=== PATIENT | male | born 1980 ===

== ENCOUNTER 2019-03-02 16:14 | Inpatient (IN) | payer OTHER ==
--- NOTE | 2019-03-02 16:36 | ED ---
Chest Pain HPI - General Chief Complaint: Chest Pain Stated Complaint: coughing, chest pain, abimbola, hypertension Time Seen by Provider: 03/02/19 16:23 Source: patient Mode of arrival: ambulatory Limitations: no limitations - History of Present Illness Initial Comments: 38-year-old male patient presents to the emergency department today for evaluation of chest pain. Patient states he has been having chest pain for the last week. Patient states that last night seemed to worsen and he had elevated blood pressure and heart rate. Patient states he does have history of coronary artery disease with history of three-vessel bypass and 17 stents. Patient states he is currently taking Imdur, Plavix, and nitro as needed. Patient states he has been having increased swelling to his bilateral ankles. Patient states his been very short of breath and unable to walk up stairs or doing any prolonged physical activity. States he was nauseated and vomiting last evening. States he did have a temperature 102F. He states he does have a dry cough. Denies any nasal congestion or sore throat. Patient denies any recent rash, abdominal pain, diarrhea, constipation, back pain, numbness, tingling, dizziness, weakness, hematuria, dysuria, urinary urgency, urinary frequency, headache, visual changes, or any other complaints. Patient has been at [facility] for 2.5 weeks for alcohol addiction. - Related Data Home Medications Medication Instructions Recorded Confirmed Acetaminophen [Tylenol] 650 mg PO Q4H PRN 03/02/19 03/02/19 Citalopram Hydrobromide [CeleXA] 40 mg PO DAILY 03/02/19 03/02/19 Gabapentin [Neurontin] 800 mg PO TID 03/02/19 03/02/19 Ibuprofen [Motrin] 600 mg PO Q6HR PRN 03/02/19 03/02/19 Insulin Aspart [Novolog Flexpen] See Protocol SQ TID 03/02/19 03/02/19 Insulin Glargine,Hum.rec.anlog 90 unit SQ HS 03/02/19 03/02/19 [Basaglar Kwikpen U-100] Metoprolol Succinate (ER) [Toprol 100 mg PO DAILY 03/02/19 03/02/19 Xl] Mirtazapine [Remeron] 15 mg PO HS 03/02/19 03/02/19 Multivitamins, Thera [Multivitamin 1 tab PO DAILY 03/02/19 03/02/19 (formulary)] Pantoprazole Sodium [Protonix] 40 mg PO BID 03/02/19 03/02/19 Thiamine HCl [Vitamin B-1] 100 mg PO DAILY 03/02/19 03/02/19 busPIRone HCl [Buspar] 10 mg PO TID PRN 03/02/19 03/02/19 Allergies Allergy/AdvReac Type Severity Reaction Status Date / Time acetaminophen Allergy Rash/Hives Verified 03/02/19 16:31 Iodinated Contrast- Oral and Allergy Rash/Hives Verified 03/02/19 16:31 IV Dye ketorolac [From Toradol] Allergy Rash/Hives Verified 03/02/19 16:31 shellfish derived [Shellfish] Allergy Rash/Hives Verified 03/02/19 16:31 tramadol Allergy Rash/Hives Verified 03/02/19 16:31 Review of Systems ROS Statement: Those systems with pertinent positive or pertinent negative responses have been documented in the HPI. ROS Other: All systems not noted in ROS Statement are negative. EKG Findings - EKG Comments: EKG Findings:: EKG obtained at 1648 shows normal sinus rhythm with a ventricular rate of 72, P return of a 152, QRS duration 90, QT 414, QTC 453. No evidence of ST elevation or depression. Past Medical History Past Medical History: Atrial Fibrillation, Coronary Artery Disease (CAD), Diabetes Mellitus, Hyperlipidemia, Hypertension, Myocardial Infarction (ID) Additional Past Medical History / Comment(s): CAD, anemic History of Any Multi-Drug Resistant Organisms: None Reported Past Surgical History: Cholecystectomy, Coronary Bypass/CABG, Heart Catheterization With Stent Additional Past Surgical History / Comment(s): 17 stents, neck c2 repair, clavical repair Past Psychological History: Anxiety, Depression Smoking Status: Former smoker Past Alcohol Use History: Abuse, Heavy Past Drug Use History: None Reported General Exam Limitations: no limitations General appearance: alert, in no apparent distress, other (This is a well- developed, well-nourished adult male patient in no acute distress. Vital signs upon presentation are temperature 98.3F, pulse 75, respirations 18, blood pressure 112/63, pulse ox 99% on room air.) Eye exam: Present: normal appearance, PERRL, EOMI. Absent: scleral icterus, conjunctival injection, periorbital swelling ENT exam: Present: normal exam, normal oropharynx, mucous membranes moist Respiratory exam: Present: normal lung sounds bilaterally. Absent: respiratory distress, wheezes, rales, rhonchi, stridor Cardiovascular Exam: Present: regular rate, normal rhythm, normal heart sounds. Absent: systolic murmur, diastolic murmur, rubs, gallop, clicks GI/Abdominal exam: Present: soft, normal bowel sounds. Absent: distended, tenderness, guarding, rebound, rigid Neurological exam: Present: alert, oriented X3, CN II-XII intact Psychiatric exam: Present: normal affect, normal mood Skin exam: Present: warm, dry, intact, normal color. Absent: rash Course Vital Signs 03/02/19 16:18 Temperature 98.3 F Pulse Rate 75 Respiratory 18 Rate Blood Pressure 112/63 O2 Sat by Pulse 99 Oximetry Chest Pain MDM - [facility] 38-year-old male patient with past medical history significant for coronary artery disease with triple vessel CABG and 17 stents, presented to the emergency department today for evaluation of chest pain, shortness of breath, and nausea. Physical examination is unremarkable. Lungs are clear to auscultation with good air movement. Chest pain is nonreproducible with palpation. Labs reviewed and are unremarkable. Troponin negative. Chest x-ray shows no acute cardio pulmonary process. EKG is normal sinus rhythm. Given patient's history was admitted for observation and evaluation by cardiology. He is currently taking Plavix. We will repeat troponins. We will allow admitted to manage pain medication. Disposition Clinical Impression: Chest pain Disposition: ADMITTED IP TO THIS [facility] Condition: Serious Referrals: Arturo Kaplan MD [Primary Care Provider] - 1-2 days Decision to Admit Reason: Admit from [facility] Decision Date: 03/02/19 Decision Time: 19:35
[2019-03-02 18:13] LABS: Anisocytosis Slight; Basophils % (A) 0 %; Eosinophils # (A) 0.1 k/uL (0-0.7); Eosinophils % (A) 1 %; HCT 26.2 % (39.0-53.0); Hypochromasia Marked; Lymphocytes % (A) 11 %; MCH 22.4 pg (25.0-35.0); MCHC 30.4 g/dL (31.0-37.0); MCV 73.5 fL (80.0-100.0); Mean Platelet Volume 10.3; Microcytosis Moderate; Monocytes # (A) 0.7 k/uL (0-1.0); Monocytes % (A) 8 %; Neutrophils # (A) 7.3 k/uL (1.3-7.7); Neutrophils % (A) 78 %; Platelet Count 128 k/uL (150-450); Poikilocytosis Slight; RBC 3.56 m/uL (4.30-5.90); RDW 17.6 % (11.5-15.5); WBC 9.4 k/uL (3.8-10.6)
[2019-03-02 18:16] LABS: ALT 35 U/L (21-72); AST 24 U/L (17-59); Alkaline Phosphatase 104 U/L (38-126); Amylase 61 U/L (30-110); Blood Urea Nitrogen 23 mg/dL (9-20); Calcium 8.2 mg/dL (8.4-10.2); Carbon Dioxide 25 mmol/L (22-30); Glucose 313 mg/dL (74-99); Lipase 275 U/L (23-300); Magnesium 1.8 mg/dL (1.6-2.3); Potassium 4.5 mmol/L (3.5-5.1); Sodium 135 mmol/L (137-145); Total Bilirubin 0.3 mg/dL (0.2-1.3); Total Protein 5.7 g/dL (6.3-8.2)
[2019-03-02 18:20] LABS: Prothrombin Time 10.5 sec (9.0-12.0)
--- NOTE | 2019-03-02 18:29 | XR ---
EXAMINATION TYPE: XR chest 2V DATE OF EXAM: 03/02/2019 COMPARISON: NONE HISTORY: Chest pain TECHNIQUE: Frontal and lateral views of the chest are obtained. FINDINGS: Heart and mediastinum are normal. Lungs are clear of infiltrate. There is chest leads. The re is no pleural effusion. There is late fixing old right clavicle fracture. Thoracic spine is intact . There are old right-sided healed rib fractures. IMPRESSION: No active cardiopulmonary disease.
[2019-03-02 18:30] LABS: Albumin 3.1 g/dL (3.5-5.0); Anion Gap 6 mmol/L; Chloride 104 mmol/L (98-107)
[2019-03-02] MEDS ORDERED: MORPHINE SULFATE 4 MG/ML SYRINGE IVP STA (19:23)
[2019-03-02] MEDS ORDERED: diphenhydrAMINE 25 MG CAP PO STA (19:23)
[2019-03-02] MEDS ORDERED: NITROGLYCERIN SL TABS 0.4 MG TAB SUBLINGUAL PRN (19:40)
[2019-03-02] MEDS ORDERED: busPIRone HCl 10 MG TAB PO PRN (20:36)
[2019-03-02 21:16] LABS: Glucose,Whole Blood 201 mg/dL (75-99)
--- NOTE | 2019-03-02 22:47 | HP ---
HISTORY AND PHYSICAL CHIEF COMPLAINT: Chest pain. HISTORY OF PRESENT ILLNESS: This is the first known admission for this 38-year-old gentleman who has had severe cardiac issues in the past. He started to have shaking chills and found his temperature to be 102. Checked his blood pressure and it was 240/160 with a pulse of 136 and he came to the emergency room. His past history is significant and he has had a CABG and 17 stents. These are all been done elsewhere. He has history of hypertension, type 1 insulin-dependent diabetes mellitus, depression and hyperlipidemia. REVIEW OF SYSTEMS: He has had no syncope, nuchal rigidity, cough, sputum production, dysuria, frequency, urgency, abdominal pain, nausea, vomiting, diarrhea, melena, hematochezia, etc. Past medical history, family history personal and social histories reveal he is ALLERGIC TO CONTRAST MATERIAL, SHELLFISH, TRAMADOL, NSAIDS, AND ACETAMINOPHEN. According to his MAR, he is taking Tylenol, (! ! !). He also takes BuSpar, Celexa, gabapentin, ibuprofen, ibuprofen, Basaglar and NovoLog, metoprolol, mirtazapine, Protonix, and thiamin. Laboratory studies reveal hemoglobin of 8, blood sugar 313, calcium low at 8.2, and low protein. PHYSICAL EXAM: Blood pressure 112/63 with a pulse 75, respirations of 18. He is afebrile. GENERAL: He appeared to be well developed, well nourished, in no acute distress. Skin color is normal. Skin is warm, dry. Lymph nodes not enlarged. Head, ears, eyes, nose, mouth, and throat are unremarkable except he has some small magnets pasted on each ear. Carotids are normal. Neck veins not distended. Chest is clear and the cardiac exam demonstrated a grade 2/6 systolic murmur heard throughout the precordium. The abdomen was soft and nontender and extremities were normal. Neurological he is intact. He is admitted to the hospital with diagnoses: IMPRESSION: 1. Chest pain. 2. Extensive history of coronary artery disease with coronary artery bypass grafting and 17 stents. 3. Type 1 insulin dependent diabetes mellitus. 4. History of hypertension. 5. History of depression. 6. Hyperlipidemia. 7. Fever of unknown origin. PLAN: 1. Bed rest. 2. IV fluids. 3. Serial EKGs and enzymes. 4. Watch for elevated temperature, blood pressure, which are not documented since he has come to the hospital. 5. Cardiology consult. MMODL / IJN: [id number] /
[2019-03-02] MEDS: PANTOPRAZOLE 40 MG TABLET PO SCH (23:24)
[2019-03-02] MEDS: MIRTAZAPINE 15 MG TAB PO SCH (23:24)
[2019-03-02] MEDS: INSULIN DETEMIR (LEVEMIR) 100 UNIT/ML SYR SQ SCH (23:24)
[2019-03-02] MEDS: INSULIN ASPART (NovoLOG) 100 UNIT/ML VIAL SQ SCH (23:37)
[2019-03-02] MEDS: GABAPENTIN 400 MG CAP PO SCH (23:59)
[2019-03-03] MEDS ORDERED: IBUPROFEN 600 MG TAB PO STA (04:06)
[2019-03-03 06:40] LABS: Glucose,Whole Blood 71 mg/dL (75-99)
[2019-03-03 06:43] LABS: Cholesterol 95 mg/dL (<200); HDL Cholesterol 33 mg/dL (40-60); LDL Cholesterol,Calculated 50 mg/dL (0-99); Triglycerides 60 mg/dL (<150)
[2019-03-03 07:02] LABS: Glucose,Whole Blood 107 mg/dL (75-99)
[2019-03-03] MEDS: INSULIN ASPART (NovoLOG) 100 UNIT/ML VIAL SQ SCH ×3 (08:58→17:18)
[2019-03-03] MEDS: GABAPENTIN 400 MG CAP PO SCH ×3 (09:09→21:11)
[2019-03-03] MEDS: THIAMINE 100 MG TAB PO SCH (09:09)
[2019-03-03] MEDS: ASPIRIN 325 MG TAB PO SCH (09:09)
[2019-03-03] MEDS: CITALOPRAM HYDROBROMIDE 20 MG TAB PO SCH (09:09)
[2019-03-03] MEDS: PANTOPRAZOLE 40 MG TABLET PO SCH ×2 (09:09→17:18)
[2019-03-03] MEDS: METOPROLOL SUCCINATE (ER) 100 MG TAB.ER.24H PO SCH (09:15)
--- NOTE | 2019-03-03 09:24 | CONS ---
CONSULTATION CHIEF COMPLAINT: Chest pain. Mr. Guillen is a 38-year-old gentleman with a history of coronary artery disease, status post CABG many years ago, status post multiple prior angioplasties per history, who lives and follows with a [facility] developer in [place]. He was near [place] due to alcohol-related issues and he was in [facility]. He comes in complaining of chest pain. Initially I believe when he first came to the hospital his heart rate was elevated, blood pressure was up, and he had shaking chills and apparently a temperature, but his predominant symptom is chest pain. He describes it as a chest pressure that radiates around his back, mild intensity, unassociated with diaphoresis and unrelated to exertion. He has had on and off episodes of this pain. Nitro does not seem to make any difference. At the time of my evaluation he is pain-free, hemodynamically stable. His EKG is within normal limits. He had 2 sets of cardiac enzymes that were all within normal limits. His lipid profile shows an LDL cholesterol of 50. PAST MEDICAL HISTORY: Significant for coronary artery disease, status post CABG, status post prior multiple angioplasties, diabetes and hypertension. CURRENT MEDICATIONS: Include: 1. Motrin. 2. Tylenol. 3. BuSpar. 4. Insulin. 5. Neurontin. 6. Protonix. 7. Thiamine. 8. Multivitamins. 9. Citalopram. ALLERGIES: He has MULTIPLE DRUG ALLERGIES, includin. TYLENOL. 2. IV DYE. 3. SHELLFISH. 4. TRAMADOL. FAMILY HISTORY: Negative for premature coronary artery disease. SOCIAL HISTORY: Significant for ETOH abuse and smoking. REVIEW OF SYSTEMS: HEENT is unremarkable. CARDIAC: As described above. RESPIRATORY: Negative. GI: Negative. GENITOURINARY: Negative. ALLERGY/IMMUNOLOGY: Negative. SKIN: Negative. MUSCULOSKELETAL: Negative. ENDOCRINE/DERMATOLOGICAL: Negative. CONSTITUTIONAL: Negative. ONCOLOGICAL: Negative. Rest of the system review is not relevant. PHYSICAL EXAMINATION: Comfortable at rest. He started off with a temperature of 103. This morning the temperature is 101. Blood pressure is normal. Heart rate is normal. There is no jugular venous distention. Carotid upstroke is normal. There is no bruit. Chest exam reveals good air entry bilaterally. Heart exam reveals first and second heart sounds. No gallop. No murmur. No rub. Abdomen is soft, nontender. Examination of extremities did not reveal any edema. Peripheral pulses are felt. CAR DISTRIBUTOR exam did not reveal focal neurological deficits. ASSESSMENT: 1. Precordial chest pain. 2. Insulin-requiring diabetes. 3. Febrile illness. PLAN: Patient's chest discomfort is atypical. It actually started with fever, shaking, and what appears like a febrile illness. From cardiac standpoint, EKG looks good. Cardiac enzymes are negative. I am going to feed him this morning, obtain a 2D echo to evaluate his LV function, review his outpatient records and decide on further course of action. His fever and other issues will be addressed by the primary care physician. Thank you for allowing me to participate in the care of this pleasant gentleman. ANANT / NUNO: [id number] /
--- NOTE | 2019-03-03 11:28 | ECHOF ---
Referral Reason:chest pain MEASUREMENTS -------- HEIGHT: 162.6 cm WEIGHT: 90.7 kg BP: RVIDd: 3.1 cm (< 3.3) IVSd: 1.2 cm (0.6 - 1.1) LVIDd: 4.2 cm (3.9 - 5.3) LVPWd: 1.6 cm (0.6 - 1.1) IVSs: 1.5 cm LVIDs: 3.3 cm LVPWs: 1.5 cm Ao Diam: 3.9 cm (2.0 - 3.7) AV Cusp: 2.0 cm (1.5 - 2.6) LA Diam: 3.8 cm (2.7 - 3.8) MV EXCURSION: 19.783 mm (> 18.000) MV EF SLOPE: 65 mm/s (70 - 150) EPSS: 0.6 cm MV E Alexy: 1.06 m/s MV DecT: 186 ms MV A Alexy: 0.94 m/s MV E/A Ratio: 1.12 RAP: 5.00 mmHg RVSP: 45.35 mmHg FINDINGS -------- Sinus rhythm. This was a technically adequate study. The left ventricular size is normal. There is mild concentric left ventricular hypertrophy. Overa ll left ventricular systolic function is normal with, an EF between 55 - 60 %. The right ventricle is normal in size. The left atrial size is normal. The right atrial size is normal. The aortic valve is trileaflet, and appears structurally normal. No aortic stenosis or regurgitation. Mild mitral annular calcification present. Mild mitral regurgitation is present. Mild tricuspid regurgitation present. There is mild pulmonary hypertension. The right ventricular systolic pressure, as measured by Doppler, is 45.35mmHg. The pulmonic valve was not well visualized. The aortic root size is normal. There is no pericardial effusion. CONCLUSIONS -------- 1. The left ventricular size is normal. 2. There is mild concentric left ventricular hypertrophy. 3. Overall left ventricular systolic function is normal with, an EF between 55 - 60 %. 4. The right ventricle is normal in size. 5. The left atrial size is normal. 6. The right atrial size is normal. 7. The aortic valve is trileaflet, and appears structurally normal. No aortic stenosis or regurgitati on. 8. Mild mitral annular calcification present. 9. Mild mitral regurgitation is present. 10. Mild tricuspid regurgitation present. 11. There is mild pulmonary hypertension. 12. The right ventricular systolic pressure, as measured by Doppler, is 45.35mmHg. 13. The pulmonic valve was not well visualized. 14. The aortic root size is normal. 15. There is no pericardial effusion. ASSISTANT [employer]O CENTER MANAGER: Sarika Jorge RDCS
[2019-03-03 11:57] LABS: Glucose,Whole Blood 138 mg/dL (75-99)
[2019-03-03] MEDS: OSELTAMIVIR 75 MG CAP PO SCH ×2 (13:18→21:11)
[2019-03-03 16:47] LABS: Glucose,Whole Blood 267 mg/dL (75-99)
[2019-03-03] MEDS: SODIUM CHLORIDE 0.9% 1,000 ML IV SCH (17:15)
--- NOTE | 2019-03-03 17:27 | PN ---
PROGRESS NOTE CHIEF COMPLAINT: Chest pain, chills and fever. HISTORY OF PRESENT ILLNESS: This gentleman is doing fairly well. He is being seen by Cardiology. He has been found to have influenza and he is being treated. PHYSICAL EXAM: Murmur is the same. Chest is clear. IMPRESSION: 1. Chest pain. 2. Extensive history of coronary artery disease with coronary artery bypass graft and numerous stents. 3. Influenza. PLAN: Continue current treatment and await cardiology's recommendations regarding further workup and treatment. MMODL / IJN: [id number] /
[2019-03-03 20:01] LABS: Glucose,Whole Blood 162 mg/dL (75-99)
[2019-03-03] MEDS: INSULIN DETEMIR (LEVEMIR) 100 UNIT/ML SYR SQ SCH (20:40)
[2019-03-03] MEDS: MIRTAZAPINE 15 MG TAB PO SCH (21:11)
[2019-03-04 06:38] LABS: Glucose,Whole Blood 78 mg/dL (75-99)
--- NOTE | 2019-03-04 07:52 | PN ---
PROGRESS NOTE Mr. Guillen is a 38-year-old gentleman who was admitted to hospital with chest pain, fevers, and multiple other symptoms. I reviewed his records from his previous channel specialist. Patient actually had a cardiac cath last month but I do not have the cath report. The information that we have does not show that he had any stents. With this, I do not think he needs any further cardiac workup at this time. He had an echocardiogram with us. It showed normal LV function. On exam, things have remained unchanged. The patient had been diagnosed with flu since our initial evaluation. ASSESSMENT: Chest pain, atypical, probably related to flu-like illness. No further cardiac workup at this time. Arrange follow up with his own channel specialist upon discharge. MMODL / IJN: [id number] /
[2019-03-04] MEDS: SODIUM CHLORIDE 0.9% 1,000 ML IV SCH ×2 (07:55→22:42)
[2019-03-04] MEDS: INSULIN ASPART (NovoLOG) 100 UNIT/ML VIAL SQ SCH ×3 (07:55→17:02)
[2019-03-04] MEDS: GABAPENTIN 400 MG CAP PO SCH ×3 (08:50→21:07)
[2019-03-04] MEDS: PANTOPRAZOLE 40 MG TABLET PO SCH ×2 (08:50→16:39)
[2019-03-04] MEDS: OSELTAMIVIR 75 MG CAP PO SCH ×2 (08:50→21:07)
[2019-03-04] MEDS: THIAMINE 100 MG TAB PO SCH (08:50)
[2019-03-04] MEDS: ASPIRIN 325 MG TAB PO SCH (08:50)
[2019-03-04] MEDS: CITALOPRAM HYDROBROMIDE 20 MG TAB PO SCH (08:50)
[2019-03-04] MEDS: METOPROLOL SUCCINATE (ER) 100 MG TAB.ER.24H PO SCH (08:51)
[2019-03-04 11:46] LABS: Glucose,Whole Blood 135 mg/dL (75-99)
[2019-03-04 16:41] LABS: Glucose,Whole Blood 334 mg/dL (75-99)
[2019-03-04 20:15] LABS: Glucose,Whole Blood 280 mg/dL (75-99)
[2019-03-04] MEDS: INSULIN DETEMIR (LEVEMIR) 100 UNIT/ML SYR SQ SCH (20:57)
[2019-03-04] MEDS: MIRTAZAPINE 15 MG TAB PO SCH (21:07)
--- NOTE | 2019-03-04 22:10 | PN ---
PROGRESS NOTE CHIEF COMPLAINT: Chest pain. HISTORY OF PRESENT ILLNESS: This gentleman is doing well. He is not having any further chest pain and no fever. He is on Tamiflu. PHYSICAL EXAM: Chest is clear. Cardiac exam is unchanged. IMPRESSION: 1. Chest pain. 2. Influenza. PLAN: Probably back to [place] tomorrow. MMODL / IJN: [id number] /
[2019-03-05 06:46] LABS: Glucose,Whole Blood 205 mg/dL (75-99)
[2019-03-05 07:00] VITALS: BP 118/66; RESP 14; TEMP 98.2
[2019-03-05] MEDS: CITALOPRAM HYDROBROMIDE 20 MG TAB PO SCH (07:44)
[2019-03-05] MEDS: PANTOPRAZOLE 40 MG TABLET PO SCH (07:44)
[2019-03-05] MEDS: ASPIRIN 325 MG TAB PO SCH (07:44)
[2019-03-05] MEDS: INSULIN ASPART (NovoLOG) 100 UNIT/ML VIAL SQ SCH ×2 (07:44→13:15)
[2019-03-05] MEDS: OSELTAMIVIR 75 MG CAP PO SCH (07:45)
[2019-03-05] MEDS: GABAPENTIN 400 MG CAP PO SCH (07:45)
[2019-03-05] MEDS: METOPROLOL SUCCINATE (ER) 100 MG TAB.ER.24H PO SCH (07:45)
[2019-03-05] MEDS: THIAMINE 100 MG TAB PO SCH (07:45)
[2019-03-05 07:55] VITALS: PULSE 97
[2019-03-05 09:30] LABS: Glucose,Whole Blood 94 mg/dL (75-99)
[2019-03-05 12:08] LABS: Glucose,Whole Blood 205 mg/dL (75-99)
--- NOTE | 2019-03-05 18:50 | DS ---
DISCHARGE SUMMARY CHIEF COMPLAINT: Chest pain. HISTORY OF PRESENT ILLNESS AND PHYSICAL EXAM: Details of this man's history and physical can be found in the initial workup. LABORATORY STUDIES: While he was in the hospital he had laboratory studies, details of which can be found in the laboratory section of his chart. COURSE IN HOSPITAL: After admission, he was placed on bedrest and started on intravenous fluids and because of his chest pain and his extensive heart history, seen by Cardiology, they felt he did not have active coronary artery disease or any other cardiac problem at this time. He was found to be positive for H flu and started on Tamiflu. He was doing well and it was felt to be he could go back to [place] on the . He will go there on usual activity and diet and medication along with Tamiflu. FINAL DIAGNOSIS: 1. Chest pain, noncardiac. 2. Influenza. 3. Extensive history of coronary artery disease. OPERATIONS: None. CONSULTATIONS: Cardiology. He is improved. MMPHAML / SENAITN: [id number] /
== END 2019-03-05 13:22 | disposition home or self-care (01) | DRG 866 ==
LOC: EC 16:14 → 1SOBS 19:16 → OBSVTOIN 03-05 07:03
PROVIDERS: ADMIT Family Medicine; ATTEND Family Medicine
DX: J10.89 Influenza due to other identified influenza virus with other manifestations (principal); E10.9 Type 1 diabetes mellitus without complications; E78.5 Hyperlipidemia, unspecified; F10.10 Alcohol abuse, uncomplicated; I10 Essential (primary) hypertension; I25.10 Atherosclerotic heart disease of native coronary artery without angina pectoris; I25.2 Old myocardial infarction; I48.91 Unspecified atrial fibrillation; Z79.4 Long term (current) use of insulin; Z87.891 Personal history of nicotine dependence; Z95.1 Presence of aortocoronary bypass graft; Z95.5 Presence of coronary angioplasty implant and graft; Z88.6 Allergy status to analgesic agent; Z91.041 Radiographic dye allergy status; Z88.5 Allergy status to narcotic agent; Z91.013 Allergy to seafood; R07.89 Other chest pain; Z79.899 Other long term (current) drug therapy; F32.9 Major depressive disorder, single episode, unspecified
CPT/HCPCS: 36415; 71046; 80053; 80061; 82150; 83690; 83735; 83880; 84484; 85025; 85610; 85730; 87502; 93005; 93306; 94760; 96374; 99285